=== PATIENT | female | born 1950 | race Caucasian/White ===

== ENCOUNTER 2021-11-13 12:11 | Emergency (ER) | payer MEDICARE, BC ==
[2021-11-13 14:50] LABS: TROPONIN I HIGH SENSITIVITY 28.1 pg/mL (<=60.3)
== END 2021-11-13 15:45 | disposition home or self-care (01) ==
LOC: JP.ED 12:11
DX: I35.0 Nonrheumatic aortic (valve) stenosis (principal); R00.2 Palpitations; I10 Essential (primary) hypertension; K21.9 Gastro-esophageal reflux disease without esophagitis; E78.00 Pure hypercholesterolemia, unspecified; E11.9 Type 2 diabetes mellitus without complications; F17.210 Nicotine dependence, cigarettes, uncomplicated; Z88.0 Allergy status to penicillin; Z91.040 Latex allergy status; Z79.899 Other long term (current) drug therapy; Z95.2 Presence of prosthetic heart valve
CPT/HCPCS: 36415; 80048; 83735; 84443; 84484; 85025; 93005; 93010; 99283; 99285-25

== ENCOUNTER 2022-03-11 18:53 | Emergency (ER) | payer MEDICARE, BC | END 2022-03-11 20:01 | disposition home or self-care (01) | LOC: JP.ED 18:53 | DX: S50.12XA Contusion of left forearm, initial encounter (principal); E78.00 Pure hypercholesterolemia, unspecified; I10 Essential (primary) hypertension; E11.9 Type 2 diabetes mellitus without complications; Z88.0 Allergy status to penicillin; Z91.040 Latex allergy status; Z79.899 Other long term (current) drug therapy; Z86.16 Personal history of COVID-19; Z90.49 Acquired absence of other specified parts of digestive tract; Z90.710 Acquired absence of both cervix and uterus; W01.198A Fall on same level from slipping, tripping and stumbling with subsequent striking against other object, initial encounter | CPT/HCPCS: 73090-26-LT; 73090-LT; 99283 ==